=== PATIENT | female | born 1950 | race Caucasian/White ===

== ENCOUNTER 2018-08-10 15:35 | Outpatient (CLI) | payer OTHER | END 2018-08-10 15:36 | disposition critical access hospital (66) | LOC: EMS 15:35 | PROVIDERS: ATTEND Surgery | DX: R51 Headache (principal); V99.XXXA Unspecified transport accident, initial encounter | CPT/HCPCS: A0425; A0429 ==

== ENCOUNTER 2018-08-10 16:05 | Emergency (ER) | payer MEDICARE, OTHER ==
[2018-08-10] MEDS ORDERED: ACETAMINOPHEN 325 MG TABLET PO STA (16:24)
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
[2018-08-10 17:42] VITALS: BP 125/66
== END 2018-08-10 17:40 | disposition home or self-care (01) ==
LOC: ED 16:05
DX: S09.90XA Unspecified injury of head, initial encounter (principal); V43.52XA Car driver injured in collision with other type car in traffic accident, initial encounter
CPT/HCPCS: 70450; 99282; 99283; A9270